=== PATIENT | female | born 1960 | race Caucasian/White ===

== ENCOUNTER 2020-05-17 05:30 | Observation (INO) | payer OTHER ==
[2020-05-17] VITALS (8 sets, daily range): BP systolic 113–133; BP diastolic 66–78
[~2020-05-17] VITALS: Ht 167.6 cm; Wt 96.2 kg
[~2020-05-17 05:30] MED LIST: CYMBALTA30 MG PO; GLUCOSAMINE-CH1 EA11 PO; LEVOCETIRIZINE D5 MG PO; NP THYROID60 MG PO; PRENATAL VITAM1 EACH PO; [UNRECOGNIZED DRUG - OTHER] PO
[2020-05-17] MEDS ORDERED: CELECOXIB 200 MG CAP ONE (06:15)
[2020-05-17] MEDS ORDERED: DEXAMETHASONE SOD PHOS INJ 4 MG/ML VIAL ONE (06:16)
[2020-05-17] MEDS ORDERED: GABAPENTIN 300 MG CAP ONE (06:16)
[2020-05-17] MEDS ORDERED: CEFAZOLIN SOD 1 GM/NS 50ML 100 ML IV ONE (06:16)
[2020-05-17] MEDS ORDERED: BUPIVACAINE 7.5MG/ML /DEXTROSE 82.5MG/ML 2 ML AMP INJ ONE (06:39)
[2020-05-17] MEDS ORDERED: SODIUM CHLORIDE 0.9% 500ML 500 ML ONE ×2 (06:41→16:29)
[2020-05-17] MEDS ORDERED: VANCOMYCIN HCL 1,000 MG ONE (06:41)
[2020-05-17] MEDS ORDERED: TRANEXAMIC ACID 1,000 MG/10 ML ML ONE (06:42)
[2020-05-17] MEDS ORDERED: ROPIVACAINE 246.25 MG, EPINEPHRINE HCL 1:1000 1ML 0.5 MG, CLONIDINE HCL 0.08 MG, KETORO... INJ ONE ×5 (08:00)
[2020-05-17] MEDS ORDERED: HYDROCODONE/APAP 5MG-325MG TAB PO PRN (09:45)
[2020-05-17] MEDS ORDERED: ONDANSETRON HCL INJ 2MG/ML 2ML 2 MG/ML VIAL IV PRN (09:45)
[2020-05-17] MEDS ORDERED: KETOROLAC TROMETHAMINE 30 MG/ML VIAL IV PRN (09:45)
[2020-05-17] MEDS ORDERED: ACETAMINOPHEN 650 MG SUPP PR PRN (09:45)
[2020-05-17] MEDS: SODIUM CHLORIDE 0.9% 1000ML 1,000 ML IV SCH ×2 (09:45→22:39)
[2020-05-17] MEDS ORDERED: DOCUSATE SODIUM 100 MG CAP PO PRN (09:45)
[2020-05-17] MEDS ORDERED: DIPHENHYDRAMINE HCL INJ 50 MG/ML VIAL IV PRN (09:45)
[2020-05-17] MEDS ORDERED: PROPOFOL IV EMULSION 10 MG/ML 20 ML VIAL ONE (12:08)
[2020-05-17] MEDS ORDERED: LIDOCAINE HCL 2% LOCAL INJ 5 ML SDV VIAL INJ ONE (12:08)
[2020-05-17] MEDS ORDERED: EPHEDRINE SULFATE INJ 50 MG/ML VIAL ONE (12:08)
[2020-05-17] MEDS ORDERED: PHENYLEPHRINE HCL 1% 10 MG/ML VIAL ONE (12:08)
[2020-05-17] MEDS ORDERED: ACETAMINOPHEN 1000 MG/100 ML IV PRN (14:00)
[2020-05-17] MEDS: HYDROCODONE/APAP 7.5MG-325MG 1 EA TAB PO PRN ×2 (14:11→22:39)
[2020-05-17] MEDS: CEFAZOLIN SOD 1 GM/NS 50ML 50 ML IV SCH (16:15)
[2020-05-17] MEDS: ASPIRIN 325 MG TAB PO SCH (16:18)
[2020-05-17] MEDS: CELECOXIB 100 MG CAP PO SCH (16:27)
[2020-05-17] MEDS ORDERED: FENTANYL CITRATE/PF 100MCG/2 ML INJ ONE (17:49)
[2020-05-17] MEDS ORDERED: MIDAZOLAM HCL 2 MG/2 ML VIAL ONE (17:49)
[2020-05-17] MEDS ORDERED: CALCIUM CARBONATE 500 MG CHEWABLE TABS PO PRN (20:45)
[2020-05-17] MEDS ORDERED: ZOLPIDEM TARTRATE 5 MG TAB PO PRN (21:00)
[2020-05-18] MEDS: CEFAZOLIN SOD 1 GM/NS 50ML 50 ML IV SCH ×2 (00:15→08:41)
[2020-05-18] MEDS: HYDROCODONE/APAP 7.5MG-325MG 1 EA TAB PO PRN ×2 (02:50→08:20)
[2020-05-18] MEDS: SODIUM CHLORIDE 0.9% 1000ML 1,000 ML IV SCH (06:44)
[2020-05-18 07:02] LABS: HEMATOCRIT 29.6 % (34.2-44.1); HEMOGLOBIN 9.7 g/dL (12.0-16.0)
[2020-05-18] MEDS: CELECOXIB 100 MG CAP PO SCH (08:41)
[2020-05-18] MEDS: ASPIRIN 325 MG TAB PO SCH (08:41)
[2020-05-18 08:43] VITALS: BP 122/64
[2020-05-18 09:33] VITALS: BP 122/64
[2020-05-18 12:26] VITALS: BP 123/62
[2020-05-18] MEDS ORDERED: ONDANSETRON HCL 4 MG ORAL DISINTEGRATING TAB PO PRN (13:30)
[2020-05-18] MEDS ORDERED: CELECOXIB 200 MG CAP PO SCH (17:00)
== END 2020-05-18 15:16 | disposition home or self-care (01) ==
LOC: OR 05:30 → PACU V 09:39 → MED/SURG 12:27
PROVIDERS: ADMIT Specialist; ATTEND Specialist
DX: M16.11 Unilateral primary osteoarthritis, right hip (principal); I10 Essential (primary) hypertension; Z11.59 Encounter for screening for other viral diseases; E03.9 Hypothyroidism, unspecified; F41.9 Anxiety disorder, unspecified; Z01.818 Encounter for other preprocedural examination
CPT/HCPCS: 27130; 36415; 72170; 85014; 85018; 86850; 86900; 86920; 97110; 97116 ×2; 97139; 97162; 97530 ×2; C1713 ×2; C1734; C1776 ×2; G0378 ×2; J0171; J0690 ×2; J1100; J1885; J2001; J2250; J2370; J2704; J2795; J3010; J3370; J7030 ×2; J7040; U0002